=== PATIENT | female | born 1950 | race Two or more races ===

== ENCOUNTER 2023-10-16 21:12 | Emergency (ER) | payer OTHER ==
[~2023-10-16] VITALS: Ht 162.6 cm; Wt 78.5 kg
[~2023-10-16 21:12] MED LIST: ADVAIR 2501 DISK W/1 IH; BUCALSEP SPRAY30 ML MM; PROVENTIL3 ML/2.5 M IH
[2023-10-16] MEDS ORDERED: SYNTHROID50 MCG (21:31)
[2023-10-16] MEDS ORDERED: SIMVASTATIN5 MG (21:31)
[2023-10-16 23:22] LABS: HEMATOCRIT 35.6 % (36.0-45.00); HEMOGLOBIN 11.8 g/dL (12.0-15.00); MEAN CELL VOLUME 77.1 fL (80.00-100.00); MEAN CORPUSCULAR HEMOGLOBIN 25.4 pg (27.00-32.0); PLATELET COUNT 301 K/uL (150-450); RED BLOOD COUNT 4.62 M/uL (4.00-6.00); RED CELL DISTRIBUTION WIDTH 15.5 % (11.5-14.5)
[2023-10-16 23:29] LABS: CALCIUM 9.3 mg/dL (8.5-10.1); CREATININE SERUM 1.18 mg/dL (0.55-1.02); GFR 44.77; POTASSIUM 3.93 mEq/L (3.5-5.1)
== END 2023-10-16 23:52 | disposition home or self-care (01) ==
LOC: ER 21:13
PROVIDERS: General Practice
DX: R41.3 Other amnesia (principal)